=== PATIENT | female | born 1950 | race Caucasian/White ===

== ENCOUNTER 2018-02-05 19:23 | Inpatient (IN) | payer MEDICARE, BC ==
[2018-02-05] MEDS ORDERED: MORPHINE SULFATE 2 MG/ML SYRINGE IVP PRN (19:44)
[2018-02-05] MEDS ORDERED: ONDANSETRON 4 MG/2 ML VIAL IVP STA (19:44)
--- NOTE | 2018-02-05 19:49 | ED ---
Abdominal Pain HPI - General Chief Complaint: Abdominal Pain Stated Complaint: Abd Pain Time Seen by Provider: 02/05/18 19:34 Source: patient Mode of arrival: ambulatory Limitations: no limitations - History of Present Illness Initial Comments: Patient is a 67-year-old female presents with chief complaint of abdominal pain. The pain started about 3:00 today. The patient has a long history of gallbladder pathology for which she was initially seen in July, had a drain placed, she was supposed to have laparoscopic surgery 3 weeks ago, but the surgery was technically difficult so the surgeon decided to place drains again, drains have since been removed. Patient returns today for increased abdominal pain. Patient reports a sharp stabbing pain. There are no aggravating or alleviating factors. The patient cannot identify inciting incident. The patient admits to lightheadedness, nausea. She denies chest pain or shortness of breath. - Related Data Home Medications Medication Instructions Recorded Confirmed ALPRAZolam [Xanax] 1 mg PO TID PRN 02/05/18 02/05/18 Alendronate Sodium [Fosamax] 70 mg PO LAGOS 02/05/18 02/05/18 Atorvastatin [Lipitor] 20 mg PO HS 02/05/18 02/05/18 Cholecalciferol (Vitamin D3) 10,000 unit PO DAILY 02/05/18 02/05/18 [Vitamin D3] Estrogens, Conjugated [Premarin] 0.625 mg PO DAILY 02/05/18 02/05/18 FLUoxetine HCL [PROzac] 40 mg PO DAILY 02/05/18 02/05/18 Ferrous Sulfate [Feosol] 325 mg PO DAILY 02/05/18 02/05/18 Lutein 10 mg PO DAILY 02/05/18 02/05/18 Lysine 1,000 mg PO DAILY 02/05/18 02/05/18 Multivitamins, Thera [Multivitamin 1 tab PO DAILY 02/05/18 02/05/18 (formulary)] Omeprazole [PriLOSEC] 20 mg PO AC-BID 02/05/18 02/05/18 Tolterodine Tartrate [Detrol LA] 4 mg PO DAILY 02/05/18 02/05/18 Triamterene/Hydrochlorothiazid 1 tab PO DAILY 02/05/18 02/05/18 [Triamterene-Hctz 75-50 mg Tab] metFORMIN HCL [Glucophage] 500 mg PO BID 02/05/18 02/05/18 Allergies Allergy/AdvReac Type Severity Reaction Status Date / Time No Known Allergies Allergy Verified 02/05/18 20:22 Review of Systems ROS Statement: Those systems with pertinent positive or pertinent negative responses have been documented in the HPI. ROS Other: All systems not noted in ROS Statement are negative. Gastrointestinal: Reports: abdominal pain, nausea Past Medical History Past Medical History: Hypertension History of Any Multi-Drug Resistant Organisms: None Reported Past Surgical History: Joint Replacement Additional Past Surgical History / Comment(s): knee bilateral and hip replacement. attempted lap bridgett but gallbladder not removed Past Psychological History: No Psychological Hx Reported Smoking Status: Never smoker Past Alcohol Use History: None Reported Past Drug Use History: None Reported General Exam Limitations: no limitations General appearance: alert, in distress Head exam: Present: atraumatic, normocephalic Eye exam: Present: normal appearance ENT exam: Present: normal exam, mucous membranes moist Neck exam: Present: normal inspection Respiratory exam: Present: normal lung sounds bilaterally. Absent: respiratory distress, wheezes Cardiovascular Exam: Present: regular rate, normal rhythm GI/Abdominal exam: Present: soft, tenderness (Patient's tenderness in the right upper quadrant, and lower abdomen.). Absent: distended Rectal exam: Present: deferred Extremities exam: Present: normal inspection Neurological exam: Present: alert, oriented X3 Psychiatric exam: Present: normal affect, normal mood Skin exam: Present: warm, dry, intact Course Vital Signs 02/05/18 02/05/18 02/05/18 19:28 20:13 21:00 Temperature 97.7 F 97.0 F L Pulse Rate 61 60 60 Respiratory 18 18 16 Rate Blood Pressure 148/79 140/86 115/70 O2 Sat by Pulse 99 100 100 Oximetry Medical Decision Making - Medical Decision Making Patient presents with a chief complaint of abdominal pain. She has a history of gallbladder pathology, and several complications preventing her from having a cholecystectomy. Patient states that she supposed to follow-up at [facility] however her appointment is a month and she states that she has had severe pain. The end. On initial evaluation, vitals are stable though patient appears to be in moderate distress. Her skin is diaphoretic and she appears uncomfortable. Patient given Zofran, morphine, Toradol, and IV fluids. Given diffuse abdominal pain, patient will be sent for a CT scan of the abdomen and pelvis. patient to be evaluated with basic and cardiac evaluation given light headedness, diaphoresis and nausea. EKG performed at 8:13 PM shows sinus bradycardia with a left bundle branch block. Ventricular rate is 57 bpm. EKG is otherwise unremarkable. Lab evaluation of this patient shows a mild leukocytosis of 11.3. Alk phos and transaminases are elevated consistent with patient's chronic cholecystitis and biliary colic. Cardiac enzymes are negative at this time. Computed tomography scan of the abdomen and pelvis shows no acute cholecystitis, there is mild fat stranding in the right upper quadrant. On reevaluation, patient states that her pain is improved. I did discuss the findings with the patient. At this time given the patient was nauseated, diaphoretic, and lightheaded without significant evidence of overt cholecystitis, I recommended that the patient be admitted for observation given her EKG findings. The patient and her are agreeable. I discussed this case with Dr. Meredith who is agreeable with admission. Case further discussed with Dr. Fierro. Dr. Fierro states he is having to be on consult however given that the patient is seen to surgeons and has not yet had the operation, he states that the patient would likely require transfer to a tertiary facility that has hepatobiliary available. At this time , the patient was started on Zosyn and Flagyl. Her pain is improved, there are no signs of sepsis, and no concerning CT findings. The patient will stay at this facility for observation and cardiac evaluation. - Lab Data Result diagrams: 02/05/18 19:50 02/05/18 19:50 Lab Results 02/05/18 02/05/18 02/05/18 Range/Units 19:50 19:50 19:50 WBC 11.3 H (3.8-10.6) k/uL RBC 3.99 (3.80-5.40) m/uL Hgb 12.8 (11.4-16.0) gm/dL Hct 36.8 (34.0-46.0) % MCV 92.3 (80.0-100.0) fL MCH 32.1 (25.0-35.0) pg MCHC 34.8 (31.0-37.0) g/dL RDW 13.4 (11.5-15.5) % Plt Count 363 (150-450) k/uL Neutrophils % 75 % Lymphocytes % 16 % Monocytes % 5 % Eosinophils % 1 % Basophils % 1 % Neutrophils # 8.5 H (1.3-7.7) k/uL Lymphocytes # 1.8 (1.0-4.8) k/uL Monocytes # 0.6 (0-1.0) k/uL Eosinophils # 0.1 (0-0.7) k/uL Basophils # 0.1 (0-0.2) k/uL Sodium 139 (137-145) mmol/L Potassium 3.6 (3.5-5.1) mmol/L Chloride 98 (98-107) mmol/L Carbon Dioxide 22 (22-30) mmol/L Anion Gap 19 mmol/L BUN 27 H (7-17) mg/dL Creatinine 1.00 (0.52-1.04) mg/dL Est GFR (CKD-EPI)AfAm 67 (>60 ml/min/1.73 sqM) Est GFR (CKD-EPI)NonAf 58 (>60 ml/min/1.73 sqM) Glucose 135 H (74-99) mg/dL Calcium 10.2 (8.4-10.2) mg/dL Total Bilirubin 0.3 (0.2-1.3) mg/dL AST 65 H (14-36) U/L ALT 78 H (9-52) U/L Alkaline Phosphatase 216 H (38-126) U/L Troponin I (0.000-0.034) ng/mL NT-Pro-B Natriuret Pep 531 pg/mL Total Protein 7.0 (6.3-8.2) g/dL Albumin 4.3 (3.5-5.0) g/dL Lipase 91 (23-300) U/L 02/05/18 Range/Units 19:50 WBC (3.8-10.6) k/uL RBC (3.80-5.40) m/uL Hgb (11.4-16.0) gm/dL Hct (34.0-46.0) % MCV (80.0-100.0) fL MCH (25.0-35.0) pg MCHC (31.0-37.0) g/dL RDW (11.5-15.5) % Plt Count (150-450) k/uL Neutrophils % % Lymphocytes % % Monocytes % % Eosinophils % % Basophils % % Neutrophils # (1.3-7.7) k/uL Lymphocytes # (1.0-4.8) k/uL Monocytes # (0-1.0) k/uL Eosinophils # (0-0.7) k/uL Basophils # (0-0.2) k/uL Sodium (137-145) mmol/L Potassium (3.5-5.1) mmol/L Chloride (98-107) mmol/L Carbon Dioxide (22-30) mmol/L Anion Gap mmol/L BUN (7-17) mg/dL Creatinine (0.52-1.04) mg/dL Est GFR (CKD-EPI)AfAm (>60 ml/min/1.73 sqM) Est GFR (CKD-EPI)NonAf (>60 ml/min/1.73 sqM) Glucose (74-99) mg/dL Calcium (8.4-10.2) mg/dL Total Bilirubin (0.2-1.3) mg/dL AST (14-36) U/L ALT (9-52) U/L Alkaline Phosphatase (38-126) U/L Troponin I <0.012 (0.000-0.034) ng/mL NT-Pro-B Natriuret Pep pg/mL Total Protein (6.3-8.2) g/dL Albumin (3.5-5.0) g/dL Lipase (23-300) U/L Disposition Clinical Impression: Left bundle branch block, Abnormal EKG, Abdominal pain, Transaminitis, Biliary colic, Nausea and vomiting Disposition: ADMITTED IP TO THIS HOSP Condition: Good Is patient prescribed a controlled substance at d/c from ED?: No Referrals: Zeferino Wheatley MD [Primary Care Provider] - 1-2 days Decision to Admit Reason: Admit from EC - Out of Hospital Transfer - Req. Specs Out of Hospital Transfer - Requested Specifics: Telemetry Unit
[2018-02-05 20:00] LABS: Basophils # (A) 0.1 k/uL (0-0.2); Basophils % (A) 1 %; Eosinophils # (A) 0.1 k/uL (0-0.7); Eosinophils % (A) 1 %; HCT 36.8 % (34.0-46.0); HGB 12.8 gm/dL (11.4-16.0); Lymphocytes # (A) 1.8 k/uL (1.0-4.8); Lymphocytes % (A) 16 %; MCH 32.1 pg (25.0-35.0); MCHC 34.8 g/dL (31.0-37.0); MCV 92.3 fL (80.0-100.0); Mean Platelet Volume 7.5; Monocytes # (A) 0.6 k/uL (0-1.0); Monocytes % (A) 5 %; Neutrophils # (A) 8.5 k/uL (1.3-7.7); Neutrophils % (A) 75 %; Platelet Count 363 k/uL (150-450); RBC 3.99 m/uL (3.80-5.40); RDW 13.4 % (11.5-15.5); WBC 11.3 k/uL (3.8-10.6)
[2018-02-05] MEDS: SODIUM CHLORIDE 0.9% 2,000 ML IV ONE ×2 (20:00→20:03)
[2018-02-05] MEDS: KETOROLAC 30 MG/ML 1 ML VIAL IVP SCH ×2 (20:00→23:23)
[2018-02-05 20:10] LABS: Albumin 4.3 g/dL (3.5-5.0); Calcium 10.2 mg/dL (8.4-10.2); Potassium 3.6 mmol/L (3.5-5.1); Total Bilirubin 0.3 mg/dL (0.2-1.3)
--- NOTE | 2018-02-05 21:16 | CT ---
EXAMINATION TYPE: CT abdomen pelvis w con DATE OF EXAM: 02/05/2018 COMPARISON: NONE HISTORY: Right upper quadrant abdominal pain. CT DLP: 615 mGycm Automated exposure control for dose reduction was used. TECHNIQUE: Helical acquisition of images was performed from the lung bases through the pelvis. CONTRAST: Performed without Oral Contrast and with IV Contrast, patient injected with 80ml mL of Isovue 300. FINDINGS: Lung bases are clear of infiltrate. There is no pleural effusion. Heart size is normal. There is no p ericardial effusion. Liver shows no focal defect. Gallbladder appears normal. Bile ducts are not dilated. Spleen appears n ormal. There is no pancreatic mass. There are surgical clips in the right upper quadrant. There is no adrenal mass. Kidneys show satisfactory contrast opacification. There is no hydronephrosi s. Appendix appears normal. I see no intestinal wall thickening. There are no dilated loops. There are s ome sigmoid diverticula. There is no sign of diverticulitis. There is no retroperitoneal adenopathy. There is no ascites. Bladder distends smoothly. There is left hip surgery noted. I see no evidence of a pelvic mass. Bony structures are intact. There is no compression fracture. There is very little co ntrast in the renal collecting systems on the delayed images. There is very minimal fat stranding inf erior to the gallbladder in the region of the surgical clips.: IMPRESSION: THERE IS VERY MINIMAL FAT STRANDING AROUND SURGICAL CLIPS IN THE RIGHT UPPER QUADRANT. THIS SHOULD BE CORRELATED WITH THE SURGICAL HISTORY. THE GALLBLADDER APPEARS NORMAL. NO DILATED INTRAHEPATIC BILE D UCTS. THE NATURE OF THIS SURGERY IS NOT CLEAR. NORMAL APPENDIX.
[2018-02-05] MEDS ORDERED: PIPERACILLIN-TAZOBACTAM 3.375 GM in DEXTROSE/WATER 1 50ML.BAG IVPB STA (21:29)
[2018-02-05] MEDS ORDERED: metroNIDAZOLE-NS PMX 500 MG in SALINE 1 100ML.BAG IVPB STA (21:29)
[2018-02-05] MEDS ORDERED: NALOXONE 0.4 MG/ML 1 ML VIAL IV PRN (21:46)
[2018-02-05] MEDS ORDERED: oxyCODONE-APAP 5-325MG 1 EACH TAB PO PRN (21:46)
[2018-02-05] MEDS ORDERED: SODIUM CHLORIDE 0.9% 1,000 ML IV SCH (22:00)
[2018-02-05 22:50] VITALS: BMI 27.4
--- NOTE | 2018-02-06 00:41 | P.HPIM ---
History of Present Illness H&P Date: 02/06/18 Chief Complaint: RUQ abd pain 67-year-old female with history of hypertension. Presented to the hospital due to right upper quadrant abdominal pain. She reports that this pain has been a recurrent as back in July 2017 she had a gallbladder pathology that's required percutaneous drainage the plan was to have lap bridgett done at a later time, however when surgeon attempted to do the procedure he found a lot of stranding and fibrosis for which she decided to put a drain again and plan the procedure at a surgery hepatobiliary Center which she had an appointment in February however today about 6 hour prior to presentation she had another attack of colicky right upper quadrant abdominal pain 10 out of 10 in severity, with no clear precipitating or relieving factor associated with feeling nauseous and vomiting along with being diaphoretic and reporting subjective fever. She denies any GI bleeding denies any diarrhea or constipation denies any chest pain or trouble breathing she denies any focal neurologic deficits. Upon further evaluation in the ED she was found to have left bundle branch block on EKG with some bradycardia, elevated liver enzymes CT of the abdomen showed some stranding around the gallbladder with no definitive pathology, and slightly elevated white count. Patient was seen in the medical floor currently she reports pain of 5 out of 10 which decreases when she lays flat and taking pain medications. She denies any nausea or vomiting at this time. Review of Systems Pertinent positives as noted in HPI. All other systems were reviewed and are negative Past Medical History Past Medical History: Hypertension History of Any Multi-Drug Resistant Organisms: None Reported Past Surgical History: Joint Replacement Additional Past Surgical History / Comment(s): knee bilateral and hip replacement. attempted lap bridgett but gallbladder not removed Past Anesthesia/Blood Transfusion Reactions: No Reported Reaction Past Psychological History: No Psychological Hx Reported Smoking Status: Never smoker Past Alcohol Use History: None Reported Past Drug Use History: None Reported - Past Family History Mother Family Medical History: Diabetes Mellitus, Hypertension Additional Family Medical History / Comment(s): Mother at 85 from unknown cause Father Additional Family Medical History / Comment(s): father at 82 from multiple myeloma Medications and Allergies Home Medications Medication Instructions Recorded Confirmed Type ALPRAZolam [Xanax] 1 mg PO TID PRN 02/05/18 02/05/18 History Alendronate Sodium [Fosamax] 70 mg PO LAGOS 02/05/18 02/05/18 History Atorvastatin [Lipitor] 20 mg PO HS 02/05/18 02/05/18 History Cholecalciferol (Vitamin D3) 10,000 unit PO DAILY 02/05/18 02/05/18 History [Vitamin D3] Estrogens, Conjugated [Premarin] 0.625 mg PO DAILY 02/05/18 02/05/18 History FLUoxetine HCL [PROzac] 40 mg PO DAILY 02/05/18 02/05/18 History Ferrous Sulfate [Feosol] 325 mg PO DAILY 02/05/18 02/05/18 History Lutein 10 mg PO DAILY 02/05/18 02/05/18 History Lysine 1,000 mg PO DAILY 02/05/18 02/05/18 History Multivitamins, Thera [Multivitamin 1 tab PO DAILY 02/05/18 02/05/18 History (formulary)] Omeprazole [PriLOSEC] 20 mg PO AC-BID 02/05/18 02/05/18 History Tolterodine Tartrate [Detrol LA] 4 mg PO DAILY 02/05/18 02/05/18 History Triamterene/Hydrochlorothiazid 1 tab PO DAILY 02/05/18 02/05/18 History [Triamterene-Hctz 75-50 mg Tab] metFORMIN HCL [Glucophage] 500 mg PO BID 02/05/18 02/05/18 History Allergies Allergy/AdvReac Type Severity Reaction Status Date / Time No Known Allergies Allergy Verified 02/05/18 20:22 Physical Exam Vitals: Vital Signs Temp Pulse Resp BP Pulse Ox 02/05/18 21:00 60 16 115/70 100 02/05/18 20:13 97.0 F L 60 18 140/86 100 02/05/18 19:28 97.7 F 61 18 148/79 99 Intake and Output 02/05/18 02/05/18 02/05/18 06:59 14:59 22:59 Other: Voiding Method Toilet Weight 72.575 kg Constitutional: No acute distress, conversant, pleasant Eyes: Anicteric sclerae, moist conjunctiva, no lid-lag Pupils equal round reactive to light ENMT: NC/AT Oropharynx clear, no erythema, or exudates Neck: Supple, FROM, no masses, or JVD No carotid bruits No thyromegaly Lungs: Clear to auscultation Clear to percussion Normal respiratory effort, no accessory muscle use Cardiovascular: Heart regular in rate and rhythm, No murmurs, gallops, or rubs No peripheral edema Abdominal: Soft, tenderness to palpation and percussion of the right upper quadrant with voluntary guarding. Mayen sign positive, No rigidity Abdomen moving with respiration Normoactive bowel sounds No hepatomegaly, No splenomegaly No palpable mass No abdominal wall hernia noted Skin: Normal temperature, tone, texture, turgor No induration No subcutaneous nodules No rash, lesions No ulcers Extremities: No digital cyanosis No clubbing Pedal pulses intact and symmetrical Radial pulses intact and symmetrical No calf tenderness Psychiatric: Alert and oriented to person, place and time Appropriate affect fair judgment Neuro Muscles Strength 5/5 in all 4 extremities Sensation to light touch grossly present throughout Cranial nerves II-XII grossly intact No focal sensory deficits Lymphatics: no palpable cervical or supraclavicular , or inguinal lymph nodes Results CBC & Chem 7: 02/05/18 19:50 02/05/18 19:50 Labs: Abnormal Lab Results - Last 24 Hours (Table) 02/05/18 02/05/18 Range/Units 19:50 19:50 WBC 11.3 H (3.8-10.6) k/uL Neutrophils # 8.5 H (1.3-7.7) k/uL BUN 27 H (7-17) mg/dL Glucose 135 H (74-99) mg/dL AST 65 H (14-36) U/L ALT 78 H (9-52) U/L Alkaline Phosphatase 216 H (38-126) U/L Assessment and Plan Assessment: 67-year-old female with history of hypertension and recurrent gallbladder pathology since July 2017 she presented with typical symptoms of right upper quadrant pain that she had before which was related to her gallbladder. Symptoms started in July 2017 surgery was attempted a month later after placing subcutaneous trains however she was found to have a lot of fibrosis/ surgery was canceled drains were placed and patient was counseled to go to a tertiary hepatobiliary Center for further surgical care. Patient was admitted for IV fluid hydration and surgical evaluation. Patient was also found to have questionable new onset left bundle branch block, she currently denies any cardiac symptoms troponins are initially negative, however cardiology consultative for further input. Plan: # Acute symptomatic cholelithiasis with possible choledocholithiasis #Slightly elevated liver enzymes Pain control, morphine ordered Patient started on antibiotic due to elevated white count CT of the abdomen and pelvis reviewed Surgery consult IV fluid hydration Nothing by mouth #Hypertension Currently controlled continue home medications DVT prophylaxis on heparin subcu 3 times a day Diet is nothing by mouth Surrogate decision-maker: Patient Spenser CODE STATUS: Full code Discussed with: Patient, ER, RN Anticipated discharge: 24 hours, patient admitted under observation for general surgery evaluation Anticipated discharge place: Home A total of 50 minutes was spent on the care of this complex patient more than 50 % of the time was spent in counseling and care coordination.
[2018-02-06] MEDS: MORPHINE SULFATE 2 MG/ML SYRINGE IV PRN ×5 (02:37→20:35)
[2018-02-06] MEDS: PIPERACILLIN-TAZOBACTAM 3.375 GM in DEXTROSE/WATER 1 50ML.BAG IVPB SCH ×3 (05:26→20:34)
[2018-02-06] MEDS: KETOROLAC 30 MG/ML 1 ML VIAL IVP SCH ×2 (05:26→11:40)
[2018-02-06 07:23] LABS: Basophils # (A) 0.1 k/uL (0-0.2); Basophils % (A) 1 %; Eosinophils # (A) 0.2 k/uL (0-0.7); Eosinophils % (A) 1 %; HCT 35.6 % (34.0-46.0); HGB 11.7 gm/dL (11.4-16.0); Lymphocytes # (A) 1.8 k/uL (1.0-4.8); Lymphocytes % (A) 14 %; MCH 31.7 pg (25.0-35.0); MCV 96.2 fL (80.0-100.0); Mean Platelet Volume 6.8; Monocytes # (A) 0.5 k/uL (0-1.0); Monocytes % (A) 4 %; Neutrophils # (A) 10.6 k/uL (1.3-7.7); Neutrophils % (A) 80 %; Platelet Count 341 k/uL (150-450); RDW 13.9 % (11.5-15.5); WBC 13.2 k/uL (3.8-10.6)
[2018-02-06 07:26] VITALS: RESP 16
[2018-02-06 07:39] LABS: Albumin 3.4 g/dL (3.5-5.0); Calcium 9.1 mg/dL (8.4-10.2); Potassium 3.6 mmol/L (3.5-5.1); Total Bilirubin 0.6 mg/dL (0.2-1.3); Total Protein 5.8 g/dL (6.3-8.2)
[2018-02-06 07:54] LABS: Glucose,Whole Blood 105 mg/dL (75-99)
[2018-02-06] MEDS: INSULIN ASPART 100 UNIT/ML 1 ML 10 ML VIAL SQ SCH ×4 (07:58→20:32)
[2018-02-06] MEDS ORDERED: VIT A,C & E-LUTEIN-MINERALS 1 EACH TAB PO SCH (09:00)
[2018-02-06] MEDS ORDERED: OXYBUTYNIN XL 5 MG TAB.ER.24 PO SCH (09:00)
[2018-02-06] MEDS ORDERED: FLUoxetine HCL 20 MG CAP PO SCH (09:00)
[2018-02-06] MEDS ORDERED: ESTROGENS, CONJUGATED 0.625 MG TAB PO SCH (09:00)
[2018-02-06] MEDS: PANTOPRAZOLE 40 MG TABLET PO SCH ×2 (09:21→19:12)
[2018-02-06] MEDS: HEPARIN SODIUM,PORCINE 5,000 UNIT/ML 1 ML VIAL SQ SCH ×2 (09:22→16:47)
[2018-02-06 11:48] LABS: Glucose,Whole Blood 114 mg/dL (75-99)
--- NOTE | 2018-02-06 13:55 | P.GSCN ---
History of Present Illness Consult date: 02/06/18 Reason for Consult: Cholecystitis History of present illness: This is a 67-year-old female that presented to the emergency department with complaints of abdominal pain. She has a chronic history of cholecystitis that she states began in August of this year. She states that she began having right upper quadrant pain and developed sepsis. She states at that time she was told that her gallbladder was the culprit and a drainage catheter was placed. She states that the drain was in for a few weeks and then was removed. She followed up at [facility] with a surgeon and plan was for a cholecystectomy. She states that a few weeks ago, she presented for the elective cholecystectomy and that the procedure was aborted secondary to a dense amount of scar tissue in her right upper quadrant. She was then referred to a tertiary care facility, however she was unable to be seen until the middle of February. She presents now with an onset of abdominal pain in the right upper quadrant. She complained of some emesis episodes prior to her arrival to the emergency department. She states that since she has been admitted her nausea and vomiting have been controlled. She denies any change in bowel function. She was also found to have a left bundle branch block in her cardiac workup. She denies any febrile episodes. She denies any shortness of breath. She denies any chest pain. Review of Systems All systems: negative Past Medical History Past Medical History: Hypertension History of Any Multi-Drug Resistant Organisms: None Reported Past Surgical History: Joint Replacement Additional Past Surgical History / Comment(s): knee bilateral and hip replacement. attempted lap bridgett but gallbladder not removed Past Anesthesia/Blood Transfusion Reactions: No Reported Reaction Past Psychological History: No Psychological Hx Reported Smoking Status: Never smoker Past Alcohol Use History: None Reported Past Drug Use History: None Reported - Past Family History Mother Family Medical History: Diabetes Mellitus, Hypertension Additional Family Medical History / Comment(s): Mother at 85 from unknown cause Father Additional Family Medical History / Comment(s): father at 82 from multiple myeloma Medications and Allergies Home Medications Medication Instructions Recorded Confirmed Type ALPRAZolam [Xanax] 1 mg PO TID PRN 02/05/18 02/05/18 History Alendronate Sodium [Fosamax] 70 mg PO LAGOS 02/05/18 02/05/18 History Atorvastatin [Lipitor] 20 mg PO HS 02/05/18 02/05/18 History Cholecalciferol (Vitamin D3) 10,000 unit PO DAILY 02/05/18 02/05/18 History [Vitamin D3] Estrogens, Conjugated [Premarin] 0.625 mg PO DAILY 02/05/18 02/05/18 History FLUoxetine HCL [PROzac] 40 mg PO DAILY 02/05/18 02/05/18 History Ferrous Sulfate [Feosol] 325 mg PO DAILY 02/05/18 02/05/18 History Lutein 10 mg PO DAILY 02/05/18 02/05/18 History Lysine 1,000 mg PO DAILY 02/05/18 02/05/18 History Multivitamins, Thera [Multivitamin 1 tab PO DAILY 02/05/18 02/05/18 History (formulary)] Omeprazole [PriLOSEC] 20 mg PO AC-BID 02/05/18 02/05/18 History Tolterodine Tartrate [Detrol LA] 4 mg PO DAILY 02/05/18 02/05/18 History Triamterene/Hydrochlorothiazid 1 tab PO DAILY 02/05/18 02/05/18 History [Triamterene-Hctz 75-50 mg Tab] metFORMIN HCL [Glucophage] 500 mg PO BID 02/05/18 02/05/18 History Allergies Allergy/AdvReac Type Severity Reaction Status Date / Time No Known Allergies Allergy Verified 02/05/18 20:22 Surgical - Exam Osteopathic Statement: *. No significant issues noted on an osteopathic structural exam other than those noted in the History and Physical/Consult. Vital Signs Temp Pulse Resp BP Pulse Ox 97.7 F 61 18 148/79 99 02/05/18 19:28 02/05/18 19:28 02/05/18 19:28 02/05/18 19:28 02/05/18 19:28 - General well nourished, no distress - Eyes normal ocular movement - ENT normal mucosa, no hearing loss - Neck no masses, trachea midline - Respiratory No difficulty with respiration - Abdomen Soft, tender in the right upper quadrant to palpation, nondistended, no rebound , no guarding - Integumentary no rash, no growths - Neurologic normal sensation - Psychiatric oriented to time, oriented to person, oriented to place Results - Labs 02/06/18 06:32 02/06/18 06:32 Abnormal Lab Results - Last 24 Hours (Table) 02/05/18 02/05/18 02/06/18 Range/Units 19:50 19:50 06:32 WBC 11.3 H 13.2 H (3.8-10.6) k/uL RBC 3.70 L (3.80-5.40) m/uL Neutrophils # 8.5 H 10.6 H (1.3-7.7) k/uL BUN 27 H (7-17) mg/dL Creatinine (0.52-1.04) mg/dL Glucose 135 H (74-99) mg/dL POC Glucose (mg/dL) (75-99) mg/dL AST 65 H (14-36) U/L ALT 78 H (9-52) U/L Alkaline Phosphatase 216 H (38-126) U/L Total Protein (6.3-8.2) g/dL Albumin (3.5-5.0) g/dL 02/06/18 02/06/18 02/06/18 Range/Units 06:32 07:52 11:46 WBC (3.8-10.6) k/uL RBC (3.80-5.40) m/uL Neutrophils # (1.3-7.7) k/uL BUN 28 H (7-17) mg/dL Creatinine 1.21 H (0.52-1.04) mg/dL Glucose (74-99) mg/dL POC Glucose (mg/dL) 105 H 114 H (75-99) mg/dL AST 299 H (14-36) U/L ALT 175 H (9-52) U/L Alkaline Phosphatase 239 H (38-126) U/L Total Protein 5.8 L (6.3-8.2) g/dL Albumin 3.4 L (3.5-5.0) g/dL Diabetes panel 02/05/18 02/06/18 Range/Units 19:50 06:32 Sodium 139 140 (137-145) mmol/L Potassium 3.6 3.6 (3.5-5.1) mmol/L Chloride 98 101 (98-107) mmol/L Carbon Dioxide 22 24 (22-30) mmol/L BUN 27 H 28 H (7-17) mg/dL Creatinine 1.00 1.21 H (0.52-1.04) mg/dL Glucose 135 H 98 (74-99) mg/dL Calcium 10.2 9.1 (8.4-10.2) mg/dL AST 65 H 299 H (14-36) U/L ALT 78 H 175 H (9-52) U/L Alkaline Phosphatase 216 H 239 H (38-126) U/L Total Protein 7.0 5.8 L (6.3-8.2) g/dL Albumin 4.3 3.4 L (3.5-5.0) g/dL Calcium panel 02/05/18 02/06/18 Range/Units 19:50 06:32 Calcium 10.2 9.1 (8.4-10.2) mg/dL Albumin 4.3 3.4 L (3.5-5.0) g/dL Pituitary panel 02/05/18 02/06/18 Range/Units 19:50 06:32 Sodium 139 140 (137-145) mmol/L Potassium 3.6 3.6 (3.5-5.1) mmol/L Chloride 98 101 (98-107) mmol/L Carbon Dioxide 22 24 (22-30) mmol/L BUN 27 H 28 H (7-17) mg/dL Creatinine 1.00 1.21 H (0.52-1.04) mg/dL Glucose 135 H 98 (74-99) mg/dL Calcium 10.2 9.1 (8.4-10.2) mg/dL Adrenal panel 02/05/18 02/06/18 Range/Units 19:50 06:32 Sodium 139 140 (137-145) mmol/L Potassium 3.6 3.6 (3.5-5.1) mmol/L Chloride 98 101 (98-107) mmol/L Carbon Dioxide 22 24 (22-30) mmol/L BUN 27 H 28 H (7-17) mg/dL Creatinine 1.00 1.21 H (0.52-1.04) mg/dL Glucose 135 H 98 (74-99) mg/dL Calcium 10.2 9.1 (8.4-10.2) mg/dL Total Bilirubin 0.3 0.6 (0.2-1.3) mg/dL AST 65 H 299 H (14-36) U/L ALT 78 H 175 H (9-52) U/L Alkaline Phosphatase 216 H 239 H (38-126) U/L Total Protein 7.0 5.8 L (6.3-8.2) g/dL Albumin 4.3 3.4 L (3.5-5.0) g/dL - Imaging CT scan - abdomen: report reviewed, image reviewed CT scan - pelvis: report reviewed, image reviewed (There is notable fat stranding on the CT of the abdomen and pelvis in the right upper quadrant however the gallbladder does appear normal) Assessment and Plan (1) Abdominal pain Narrative/Plan: 67-year-old female with acute on chronic cholecystitis - The patient continues to have right upper quadrant abdominal pain. Due to her history of having a cholecystostomy tube placed and subsequently having a surgical attempt at cholecystectomy with the boarding the procedure, I do believe that the patient will require services of a tertiary care facility. She initially was sent for a follow-up at a tertiary care facility, however it appears that she was unable to make it until the middle of February with a current acute flareup of her cholecystitis. At this point, I would recommend transfer to a tertiary care facility with a hepatobiliary service for evaluation and surgical management of the acute on chronic cholecystitis. I did discuss this with the primary team. Thank you for this consultation. Feel free to call with any questions. Current Visit: Yes Status: Acute Code(s): R10.9 - UNSPECIFIED ABDOMINAL PAIN SNOMED Code(s): 39981452
--- NOTE | 2018-02-06 14:06 | P.CRDCN ---
History of Present Illness History of present illness: Mrs. Ledezma is a pleasant 67-year-old female past medical history significant for hypertension, diabetes mellitus and hip replacement. She denies history of coronary artery disease or dyslipidemia. She has never followed with a planning lead for any reason. She presented to the hospital with abdominal pain and nausea. An EKG was obtained and revealed left bundle branch block. Fort his reason we have been asked to see the patient. She states she was supposed to have a laparoscopic cholecystectomy performed a few weeks ago at [facility] however there was some complication with the procedure and the procedure was aborted and she is scheduled to have an open total cholecystectomy at [place] on March 14. She developed an increased abdominal pain and nausea and came to the hospital for evaluation. CT of the abdomen and pelvis was obtained and reveals very minimal fat stranding around surgical clips in the right upper quadrant. This should be correlated with subtotal colectomy. The gallbladder appears normal with no dilated bile ducts. Surgery has been consulted. Looking back further in the medical record and old EKG was found on the system that revealed a similar type pattern with left bundle branch block evident at that time. An EKG was also obtained from [facility] and again showed a left bundle branch block. She denies symptoms of chest pain, shortness of breath, dizziness, diaphoresis or palpitations. Laboratory data reveals WBC 13.2, hemoglobin 11.7, platelets 341 , sodium 140, potassium 3.6, creatinine 1.21, AST 299, LT 175, alk phos 239, cardiac enzymes negative 1, proBNP 531. Current cardiac medications include atorvastatin 20 mg daily, triamterene/surgical or thighs at 75/50 mg daily. Review of Systems At the time of my exam: CONSTITUTIONAL: Denies fever. Denies chills. EYES: Denies blurred vision. Denies vision changes. Denies eye pain. EARS, NOSE, MOUTH & THROAT: Denies headache. Denies sore throat. Denies ear pain. CARDIOVASCULAR: Denies chest pain. Denies shortness of breath. Denies orthopnea. Denies PND. Denies palpitations. RESPIRATORY: Denies cough. GASTROINTESTINAL: Complains of abdominal pain. Denies diarrhea. Denies constipation. Denies nausea. Denies vomiting. MUSCULOSKELETAL: Denies myalgias. INTEGUMENTARY: Denies pruitis. Denies rash. NEUROLOGIC: Denies numbness. Denies tingling. Denies weakness. PSYCHIATRIC: Denies anxiety. Denies depression. ENDOCRINE: Denies fatigue. Denies weight change. Denies polydipsia. Denies polyurina. GENITOURINARY: Denies burning, hematuria or urgency with micturation. HEMATOLOGIC: Denies history of anemia. Denies bleeding. Past Medical History Past Medical History: Hypertension History of Any Multi-Drug Resistant Organisms: None Reported Past Surgical History: Joint Replacement Additional Past Surgical History / Comment(s): knee bilateral and hip replacement. attempted lap bridgett but gallbladder not removed Past Anesthesia/Blood Transfusion Reactions: No Reported Reaction Past Psychological History: No Psychological Hx Reported Smoking Status: Never smoker Past Alcohol Use History: None Reported Past Drug Use History: None Reported - Past Family History Mother Family Medical History: Diabetes Mellitus, Hypertension Additional Family Medical History / Comment(s): Mother at 85 from unknown cause Father Additional Family Medical History / Comment(s): father at 82 from multiple myeloma Medications and Allergies Home Medications Medication Instructions Recorded Confirmed Type ALPRAZolam [Xanax] 1 mg PO TID PRN 02/05/18 02/05/18 History Alendronate Sodium [Fosamax] 70 mg PO LAGOS 02/05/18 02/05/18 History Atorvastatin [Lipitor] 20 mg PO HS 02/05/18 02/05/18 History Cholecalciferol (Vitamin D3) 10,000 unit PO DAILY 02/05/18 02/05/18 History [Vitamin D3] Estrogens, Conjugated [Premarin] 0.625 mg PO DAILY 02/05/18 02/05/18 History FLUoxetine HCL [PROzac] 40 mg PO DAILY 02/05/18 02/05/18 History Ferrous Sulfate [Feosol] 325 mg PO DAILY 02/05/18 02/05/18 History Lutein 10 mg PO DAILY 02/05/18 02/05/18 History Lysine 1,000 mg PO DAILY 02/05/18 02/05/18 History Multivitamins, Thera [Multivitamin 1 tab PO DAILY 02/05/18 02/05/18 History (formulary)] Omeprazole [PriLOSEC] 20 mg PO AC-BID 02/05/18 02/05/18 History Tolterodine Tartrate [Detrol LA] 4 mg PO DAILY 02/05/18 02/05/18 History Triamterene/Hydrochlorothiazid 1 tab PO DAILY 02/05/18 02/05/18 History [Triamterene-Hctz 75-50 mg Tab] metFORMIN HCL [Glucophage] 500 mg PO BID 02/05/18 02/05/18 History Allergies Allergy/AdvReac Type Severity Reaction Status Date / Time No Known Allergies Allergy Verified 02/05/18 20:22 Physical Exam Vitals: Vital Signs Temp Pulse Pulse Resp BP BP Pulse Ox 02/06/18 09:34 16 02/06/18 07:24 97.3 F L 63 16 91/58 97 02/06/18 02:47 98.1 F 61 20 98 02/05/18 21:00 60 16 115/70 100 02/05/18 20:13 97.0 F L 60 18 140/86 100 02/05/18 19:28 97.7 F 61 18 148/79 99 Intake and Output 02/05/18 02/06/18 02/06/18 22:59 06:59 14:59 Intake Total 600 Balance 600 Intake: Intake, IV Titration 600 Amount Sodium Chloride 0.9% 1, 600 000 ml @ 75 mls/hr IV . [id number] [facility] Rx#:[id number] Other: Voiding Method Toilet # Voids 3 Weight 72.575 kg 72.575 kg Blood pressure 91/58 heart rate 63 afebrile maintaining oxygen saturation on room air GENERAL: This is a 67-year-old female in no apparent distress at the time of my examination. HEENT: Head is atraumatic, normocephalic. Pupils are equal, round. Sclerae anicteric. Conjunctivae are clear. Mucous membranes of the mouth are moist. Neck is supple. There is no jugular venous distention. No carotid bruit is heard. LUNGS: Clear to auscultation no wheezes, rales or rhonchi. No chest wall tenderness is noted on palpation or with deep breathing. HEART: Regular rate and rhythm without murmurs, rubs or gallops. S1 and S2 heard. ABDOMEN: Soft, nontender. Bowel sounds are heard. No organomegaly noted. EXTREMITIES: No evidence of peripheral edema and no calf tenderness noted. VASCULAR: Radial and dorsalis pedis pulses palpated, no evidence of clubbing. NEUROLOGIC: Patient is awake, alert and oriented x3. Results 02/06/18 06:32 02/06/18 06:32 Cardiac Enzymes 02/05/18 02/05/18 02/06/18 Range/Units 19:50 19:50 06:32 AST 65 H 299 H (14-36) U/L Troponin I <0.012 (0.000-0.034) ng/mL CBC 02/05/18 02/06/18 Range/Units 19:50 06:32 WBC 11.3 H 13.2 H (3.8-10.6) k/uL RBC 3.99 3.70 L (3.80-5.40) m/uL Hgb 12.8 11.7 (11.4-16.0) gm/dL Hct 36.8 35.6 (34.0-46.0) % Plt Count 363 341 (150-450) k/uL Comprehensive Metabolic Panel 02/05/18 02/06/18 Range/Units 19:50 06:32 Sodium 139 140 (137-145) mmol/L Potassium 3.6 3.6 (3.5-5.1) mmol/L Chloride 98 101 (98-107) mmol/L Carbon Dioxide 22 24 (22-30) mmol/L BUN 27 H 28 H (7-17) mg/dL Creatinine 1.00 1.21 H (0.52-1.04) mg/dL Glucose 135 H 98 (74-99) mg/dL Calcium 10.2 9.1 (8.4-10.2) mg/dL AST 65 H 299 H (14-36) U/L ALT 78 H 175 H (9-52) U/L Alkaline Phosphatase 216 H 239 H (38-126) U/L Total Protein 7.0 5.8 L (6.3-8.2) g/dL Albumin 4.3 3.4 L (3.5-5.0) g/dL Current Medications Generic Name Dose Route Start Last Admin Trade Name Freq PRN Reason Stop Dose Admin Fluoxetine HCl 40 mg 02/06/18 09:00 02/06/18 09:23 Prozac PO 40 mg DAILY SOBEIDA Administration Heparin Sodium (Porcine) 5,000 unit 02/06/18 08:00 02/06/18 09:22 Heparin SQ 5,000 unit Q8HR SOBEIDA Administration Sodium Chloride 1,000 mls @ 75 mls/hr 02/05/18 22:00 02/05/18 22:38 Saline 0.9% IV 75 mls/hr .[id number] SOBEIDA Administration Piperacillin/Tazobactam/ 50 mls @ 12.5 mls/hr 02/06/18 05:00 02/06/18 12:59 Dextrose 3.375 gm/ IV Solution IVPB 12.5 mls/hr Q8H SOBEIDA Administration Insulin Aspart 0 unit 02/06/18 07:30 02/06/18 12:13 Novolog SQ Not Given ACHS [facility] Protocol Ketorolac Tromethamine 15 mg 02/05/18 19:45 02/06/18 11:40 Toradol IVP 02/09/18 19:44 15 mg Q6HR SOBEIDA Administration Morphine Sulfate 4 mg 02/05/18 21:46 02/06/18 12:57 Morphine Sulfate (Inj) IV 4 mg Q4HR PRN Administration Severe Pain Multivitamins/Minerals 1 each 02/06/18 09:00 02/06/18 09:22 Ivite PO 1 each DAILY SOBEIDA Administration Naloxone HCl 0.2 mg 02/05/18 21:46 Narcan IV Q2M PRN Opioid Reversal Oxybutynin Chloride 5 mg 02/06/18 09:00 02/06/18 09:22 Ditropan Xl PO 5 mg DAILY SOBEIDA Administration Oxycodone/Acetaminophen 1 each 02/05/18 21:46 Percocet 5-325 PO Q4HR PRN Severe Pain Pantoprazole Sodium 40 mg 02/06/18 07:30 02/06/18 09:21 Protonix PO 40 mg AC-BID SOBEIDA Administration Intake and Output 02/05/18 02/06/18 02/06/18 22:59 06:59 14:59 Intake Total 600 Balance 600 Intake: Intake, IV Titration 600 Amount Sodium Chloride 0.9% 1, 600 000 ml @ 75 mls/hr IV . [id number] [facility] Rx#:[id number] Other: Voiding Method Toilet # Voids 3 Weight 72.575 kg 72.575 kg Patient Weight 02/07/18 06:59 Weight 72.575 kg 02/06/18 06:32 02/06/18 06:32 Assessment and Plan Assessment: ASSESSMENT 1. Abdominal pain with cholecystitis status post subtotal cholecystectomy 2. Hypertension 3. Left bundle branch block, chronic 4. Diabetes mellitus PLAN Obtain 2-D echocardiogram and Doppler study to assess cardiac structure and function. She should be evaluated as an outpatient with a stress test. Continue to follow blood pressure. Anti-hypertensives have not yet been restarted secondary to low blood pressures probably from pain medication. Thank you kindly for this consultation. Nurse Practitioner note has been reviewed, I agree with a documented findings and plan of care. Patient was seen and examined.
[2018-02-06 17:04] LABS: Glucose,Whole Blood 109 mg/dL (75-99)
--- NOTE | 2018-02-06 17:24 | P.DS ---
Providers Date of admission: 02/05/18 21:55 Expected date of discharge: 02/06/18 Attending physician: Gisele Jackson MD Consults: 02/05/18 21:48 Consult Physician Routine Consulting Provider: Eben Fierro Consult Reason/Comments: chronic cholecystitis, biliary colic Do you want consulting provider notified?: Already Contacted 02/05/18 22:51 Consult Physician Routine Consulting Provider: Karan العراقي Consult Reason/Comments: ? new LBBB, right lower chest pain Do you want consulting provider notified?: Yes Primary care physician: Zeferino Rooney Cavataio - Discharge Diagnosis(es) (1) Acute cholecystitis Current Visit: Yes Status: Acute (2) Chronic cholecystitis Current Visit: Yes Status: Acute (3) Transaminitis Current Visit: Yes Status: Acute (4) SHARAN (acute kidney injury) Current Visit: Yes Status: Acute (5) Left bundle branch block Current Visit: Yes Status: Acute (6) HTN (hypertension) Current Visit: Yes Status: Acute Hospital Course: Patient is a 67-year-old female with a past medical history of chronic cholecystitis, hypertension, and osteoarthritis who presented to the ER with complaints of abdominal pain. In the ER she underwent an extensive evaluation. On arrival her vital signs are found within normal limits. Initial laboratory analysis showed white blood cell count of 11.3. Bun of 27, creatinine 1 AST of 65, ALP of 78 alkaline phosphatase 216, total bilirubin 0.3. She underwent a CT abdomen and pelvis. Responded the minimal fat stranding around surgical clips in the right upper quadrant, normal gallbladder , and non dilated gallbladder ducts. She was started on Zosyn and given a dose of Flagyl. She was started on IV fluids and admitted to the general surgical floor. The morning after admission her white blood cell count increased to 13.2 , BUN 28, creatinine increased to 1.21 the patient had been given multiple doses of Toradol. Her AST increased to 99, ALP 175, alkaline phosphatase 239. She was seen by general surgery. Her case was reviewed by them in depth. She has a history of acute cholecystitis requiring percutaneous cholecystectomy tube which was sensory removed. They then attempted to perform surgery and had to abort secondary to multiple adhesions. She was then referred to hepatobiliary Center but does not have an appointment until February. With her acute flareup they recommended transfer to tertiary care facility with hepatobiliary services due to her acute on chronic cholecystitis. She was maintained nothing by mouth. She does also have a history of prediabetes and her metformin was held and she was transitioned to insulin sliding scale. Her blood pressure decreased slightly throughout the day on 02/06 and her fluids were increased and her home antihypertensives had been held. She was seen by cardiology due to a left bundle branch block on EKG. They recommended echo ( results not available prior to discharge) and possible outpatient stress test. Her toradol was discontinued with her last dose being received on 03/08 at 11: 40 AM. [facility] was contacted for possible transfer. I spoke with Dr. Francisco Tariq who agreed to take her case. She will be transferred to [facility] in stable condition. Unfortunately, the OR reports from [facility] were not available at the time of transfer as they had been el;electronically reviewed by surgery. Patient seen and examined at bedside. She continues to have right upper quadrant pain, nausea, no vomiting, no diarrhea. No chest pain or shortness of breath. Pain medications working but wear off quickly. Vital signs reviewed and stable. General: non toxic, moderate distress, appears at stated age Derm: warm, dry Head: atraumatic, normocephalic, symmetric Eyes: EOMI, no lid lag, anicteric sclera Mouth: no lip lesion, mucus membranes moist Cardiovascular: S1S2 reg, no murmur, positive posterior tibial pulse bilateral, Lungs: CTA bilateral, no rhonchi, no rales , no accessory muscle use Abdominal: soft, + tender to palpation RUQ, no guarding, no appreciable organomegaly Ext: no gross muscle atrophy, no edema, no contractures Neuro: CN II-XI grossly intact, no focal neuro deficits Psych: Alert, oriented, appropriate affect A total of 45 minutes of time were spent preparing this complex discharge summary . Pertinent Studies: CT abdomen and pelvis-minimal fat stranding around the surgical clips in the right upper quadrant, this can be correlated surgical history, gallbladder appears normal with non-dilated intrahepatic biliary ducts. Patient Condition at Discharge: Stable Plan - Discharge Summary New Discharge Prescriptions: No Action metFORMIN HCL [Glucophage] 500 mg PO BID Tolterodine Tartrate [Detrol LA] 4 mg PO DAILY Omeprazole [PriLOSEC] 20 mg PO AC-BID Multivitamins, Thera [Multivitamin (formulary)] 1 tab PO DAILY Ferrous Sulfate [Feosol] 325 mg PO DAILY FLUoxetine HCL [PROzac] 40 mg PO DAILY Estrogens, Conjugated [Premarin] 0.625 mg PO DAILY Atorvastatin [Lipitor] 20 mg PO HS ALPRAZolam [Xanax] 1 mg PO TID PRN PRN Reason: Anxiety Triamterene/Hydrochlorothiazid [Triamterene-Hctz 75-50 mg Tab] 1 tab PO DAILY Lysine 1,000 mg PO DAILY Lutein 10 mg PO DAILY Cholecalciferol (Vitamin D3) [Vitamin D3] 10,000 unit PO DAILY Alendronate Sodium [Fosamax] 70 mg PO LAGOS Discharge Medication List ALPRAZolam [Xanax] 1 mg PO TID PRN 02/05/18 [History] Alendronate Sodium [Fosamax] 70 mg PO LAGOS 02/05/18 [History] Atorvastatin [Lipitor] 20 mg PO HS 02/05/18 [History] Cholecalciferol (Vitamin D3) [Vitamin D3] 10,000 unit PO DAILY 02/05/18 [History ] Estrogens, Conjugated [Premarin] 0.625 mg PO DAILY 02/05/18 [History] FLUoxetine HCL [PROzac] 40 mg PO DAILY 02/05/18 [History] Ferrous Sulfate [Feosol] 325 mg PO DAILY 02/05/18 [History] Lutein 10 mg PO DAILY 02/05/18 [History] Lysine 1,000 mg PO DAILY 02/05/18 [History] Multivitamins, Thera [Multivitamin (formulary)] 1 tab PO DAILY 02/05/18 [History ] Omeprazole [PriLOSEC] 20 mg PO AC-BID 02/05/18 [History] Tolterodine Tartrate [Detrol LA] 4 mg PO DAILY 02/05/18 [History] Triamterene/Hydrochlorothiazid [Triamterene-Hctz 75-50 mg Tab] 1 tab PO DAILY [History] metFORMIN HCL [Glucophage] 500 mg PO BID 02/05/18 [History] Activity/Diet/Wound Care/Special Instructions: NPO Discharge Disposition: OTHER INSTITUTION NOT DEFINED
[2018-02-06 20:05] VITALS: BP 124/58; PULSE 73; TEMP 98.4
[2018-02-06 20:16] LABS: Glucose,Whole Blood 115 mg/dL (75-99)
--- NOTE | 2018-02-07 13:33 | ECHOF ---
Referral Reason:surgical clearance MEASUREMENTS -------- HEIGHT: 162.6 cm WEIGHT: 72.6 kg BP: 91/58 IVSd: 1.0 cm (0.6 - 1.1) LVIDd: 3.4 cm (3.9 - 5.3) LVPWd: 1.2 cm (0.6 - 1.1) IVSs: 1.5 cm LVIDs: 1.5 cm LVPWs: 1.6 cm LAESV Index (A-L): 16.61 ml/m Ao Diam: 3.3 cm (2.0 - 3.7) LA Diam: 3.0 cm (2.7 - 3.8) MV EXCURSION: 15.965 mm (> 18.000) MV EF SLOPE: 104 mm/s (70 - 150) EPSS: 3.4 cm MV E Ger: 0.80 m/s MV DecT: 223 ms MV A Ger: 1.02 m/s MV E/A Ratio: 0.79 RAP: 5.00 mmHg RVSP: 24.47 mmHg FINDINGS -------- Left bundle branch block This was a technically good study. The left ventricular size is normal. There is borderline concentric left ventricular hypertrophy. Overall left ventricular systolic function is low-normal with, an EF between 50 - 55 %. Septal wal l motion is delayed, and consistent with conduction delay/bundle branch block. The right ventricle is normal in size and function. The left atrium is normal in size. The right atrium is normal in size. The aortic valve is trileaflet, and appears structurally normal. No aortic stenosis or regurgitation. Mild mitral regurgitation is present. Trace tricuspid regurgitation present. The right ventricular systolic pressure, as measured by Dopp ler, is 24.47mmHg. Pulmonic valve appears structurally normal. The aortic root, ascending aorta and aortic arch are normal. The pericardium is normal. CONCLUSIONS -------- 1. Left bundle branch block 2. This was a technically good study. 3. The left ventricular size is normal. 4. There is borderline concentric left ventricular hypertrophy. 5. Overall left ventricular systolic function is low-normal with, an EF between 50 - 55 %. 6. Septal wall motion is delayed, and consistent with conduction delay/bundle branch block. 7. The right ventricle is normal in size and function. 8. The left atrium is normal in size. 9. The right atrium is normal in size. 10. The aortic valve is trileaflet, and appears structurally normal. No aortic stenosis or regurgitat ion. 11. Mild mitral regurgitation is present. 12. Trace tricuspid regurgitation present. 13. The right ventricular systolic pressure, as measured by Doppler, is 24.47mmHg. 14. Pulmonic valve appears structurally normal. 15. The aortic root, ascending aorta and aortic arch are normal. 16. The pericardium is normal. PANTOGRAPH WATCHER: Eli Hu RDCS
== END 2018-02-06 22:27 | disposition short-term general hospital (02) | DRG 445 ==
LOC: EC 19:23 → INTOOBSV 21:55 → 3SUR 21:55 → OBSVTOIN 02-06 17:52
PROVIDERS: ADMIT Internal Medicine; ATTEND Internal Medicine
DX: K80.12 Calculus of gallbladder with acute and chronic cholecystitis without obstruction (principal); N17.9 Acute kidney failure, unspecified; E11.9 Type 2 diabetes mellitus without complications; I10 Essential (primary) hypertension; M19.91 Primary osteoarthritis, unspecified site; I44.7 Left bundle-branch block, unspecified; Z79.83 Long term (current) use of bisphosphonates; Z79.84 Long term (current) use of oral hypoglycemic drugs; Z79.899 Other long term (current) drug therapy; Z96.653 Presence of artificial knee joint, bilateral; Z96.642 Presence of left artificial hip joint; Z83.3 Family history of diabetes mellitus; Z80.7 Family history of other malignant neoplasms of lymphoid, hematopoietic and related tissues; Z82.49 Family history of ischemic heart disease and other diseases of the circulatory system
CPT/HCPCS: 36415; 74177; 80053; 83690; 83880; 84484; 85025; 93005; 93306; 96361; 96365; 96375; 99285